=== PATIENT | female | born 1985 | race Caucasian/White ===

== ENCOUNTER 2020-02-19 19:28 | Observation (INO) | payer OTHER ==
[~2020-02-19] VITALS: Ht 157.5 cm; Wt 81.6 kg
[2020-02-19 19:49] VITALS: Ht 157.5 cm; Wt 81.6 kg
[2020-02-19 20:48] LABS: BASOPHIL % 0.7 % (0-2); PLATELET COUNT 375 x10^3mcL (130-400); RED CELL DISTRIBUTION WIDTH 13.7 % (11.5-14.5)
[2020-02-19 20:52] LABS: CALCIUM 8.7 mg/dL (8.5-10.1); CARBON DIOXIDE 23.2 mmol/L (21-32); CHLORIDE SERUM 105 mmol/L (98-107); CREATININE SERUM 0.7 mg/dL (0.6-1.0); GFR1 > 60 mL/min; GLUCOSE SERUM 96 mg/dL (74-106); POTASSIUM SERUM 3.8 mmol/L (3.5-5.1); SODIUM SERUM 140 mmol/L (136-145)
[2020-02-19 20:57] LABS: ALBUMIN 3.7 g/dL (3.4-5.0); ALKALINE PHOSPHATASE 52 U/L (46-116); ALT/SGPT 34 U/L (14-59); AST/SGOT 22 U/L (15-37); BILIRUBIN TOTAL 0.3 mg/dL (0.20-1.00)
[2020-02-19 21:10] LABS: microscopic required? YES; urine erythrocyte 3+ (NEGATIVE)
[2020-02-20] MEDS ORDERED: PRILOSEC OTC20 M1 PO (01:21)
[2020-02-20] MEDS ORDERED: VENTOLIN H0.09 MG/A1 IH (01:22)
--- NOTE | 2020-02-20 01:31 | NUR ---
REPORT CALLED TO FLOOR - GIVEN TO MELLY MAR.
--- NOTE | 2020-02-20 01:40 | NUR ---
PATIENT CAME UP FROM THE ED ACCOMPANIED BY THE NURSE ON WHEELCHAIR. PATIENT IN NO ACUTE DISTRESS. AWAKE, ALERT AND ORIENTED X4. PATIENT VERBALIZES SHE HAS 5/10 ABD PAIN. WILL PROCEED WITH PAIN MEDICATION INDICATED BY THE MD. PATIENT DENIES ANY ENGLAND OR DIZZINESS. ABLE TO MAKE NEEDS KNOWN. EVEN AND UNLABORED BREATHING NOTED ON ROOM AIR. LUNG SOUNDS CTA. SKIN INTACT. LAC IV WNL. FLUSHIGN WELL AND GOOD BLOOD RETURN. PULSES+, NO EDEMA NOTED. ABD SOFT/ROUND, NO DISTENTION. PATIENT HAS SOME TENDERNESS FROM ABD PAIN. BOWEL SOUNDS ACTIVE X4. BED IN LOWEST POSITION. CALL LIGHT WITHIN REACH. SIDE RAILS UP X2.
[2020-02-20 02:55] VITALS: BP 130/74
[2020-02-20 05:12] VITALS: BP 113/68
[2020-02-20 08:21] VITALS: BP 111/55
--- NOTE | 2020-02-20 08:36 | NUR ---
AAO TIMES 4. MED SURG PATIENT. LUNGS CTA. NO SOB. O2 SAT ON RA 97%. BS'S ACTIVE TIMES 4. PERIPHERAL PULSES PALPABLE. NO EDEMA. COOPERATIVE. IV SITE LAC PATENT, CDI.
--- NOTE | 2020-02-20 10:58 | NUR ---
MOTHER BRISA BURRELL ASKING ABOUT HER DTR. THE IS ON THE FACE SHEET. I ASKED ANDREW IF I COULD TALK TO HER MOM AND SHE SAID "YES".
[2020-02-20 12:13] VITALS: BP 111/69
[2020-02-20 16:29] VITALS: BP 116/68
--- NOTE | 2020-02-20 18:40 | NUR ---
AAO TIMES 4. MED SURG PATIENT. NO SOB. VS'S STABLE. COOPERATIVE. C/O OCCASIONAL ABD PAIN, MEDICATED WITH MORPHINE ORDERED. IV SITE CDI. BRP SELF.
--- NOTE | 2020-02-20 20:14 | NUR ---
recievedpt lying in bed awake alert and oriented.Moves all ext. well.lungs are clear bilt. abdomen soft w/ active dowel sound. No apparent distress note.
[2020-02-20 20:53] VITALS: BP 112/66
[2020-02-20 23:03] LABS: AMPHETAMINE QUAL UR NONE DETECTED (See below)
--- NOTE | 2020-02-21 02:53 | NUR ---
2146 AWAKE LYING IN BED W/ COMPLAINED OF PAIN. [id number] IVP GIVEN W/ RELIEVED.RESTING CONFORTABLE AFTER. 0255 SLEEPING SOUND IN BED. NO ACUTE DISTRESS NOTED.
[2020-02-21 05:17] VITALS: BP 99/54
[2020-02-21 05:37] LABS: BASOPHIL % 0.8 % (0-2); PLATELET COUNT 330 x10^3mcL (130-400); RED CELL DISTRIBUTION WIDTH 13.7 % (11.5-14.5)
[2020-02-21 05:53] LABS: CALCIUM 8.6 mg/dL (8.5-10.1); CARBON DIOXIDE 29.5 mmol/L (21-32); CHLORIDE SERUM 103 mmol/L (98-107); CREATININE SERUM 0.9 mg/dL (0.6-1.0); GFR1 > 60 mL/min; GLUCOSE SERUM 99 mg/dL (74-106); SODIUM SERUM 139 mmol/L (136-145)
--- NOTE | 2020-02-21 06:37 | NUR ---
PT ASLEEP MOST OF THE NIGHT. STILL COMPLAINED OF SEVERE ABDOMINAL PAIN.TOOK ONLY PAIN MED TWICE THE WHOLE NIGHT. NO ACUTE DISTRESS.
[2020-02-21 08:33] VITALS: BP 10/63; BP 101/63
[2020-02-21 12:39] VITALS: BP 110/67
[2020-02-21 16:42] VITALS: BP 113/67
--- NOTE | 2020-02-21 21:00 | NUR ---
RECEIVED PT FROM RN ALERT AND ORIENTED X4, BREATHING REGULAR AND UNLABORED ON ROOM AIR. PT REPORTS SEVERE BILATERAL LOWER QUADRANTS ABDOMINAL PAIN. PT DENIES ANY NAUSEA, REPORTS BOWEL MOVEMENTS ARE ALMOST CLEAR, IN PREPARATION FOR UPPER AND LOWER ENDOSCOPY PROCEDURE TOMORROW. PT VERBALIZED UNDERSTANDING OF NPO AFTER MIDNIGHT. LAC PIV PATENT, DRESSING CDI, NO SIGNS OF INFILTRATION. SAFETY PRECAUTIONS IN PLACE. WILL CONTINUE TO MONITOR.
[2020-02-21 21:05] VITALS: BP 104/63
--- NOTE | 2020-02-22 00:15 | NUR ---
PT CURRENTLY RESTING COMFORTABLY, IN NO ACUTE DISTRESS. PT PT DEMONSTRATED CALL LIGHT USE AND IS ABLE TO MAKE NEEDS KNOWN. BREATHING IS REGULAR AND UNLABORED ON ROOM AIR. PIV IS INTACT, NO SIGNS OF INFILTRATION. PT IS NPO AFTER MIDNIGHT FOR PROCEDURE TOMORROW. PT REPORTED IMPROVEMENT IN ABDOMINAL PAIN WITH ADMINSTRATION OF ORDERED PAIN MEDICATION. WILL CONTINUE TO MONITOR.
[2020-02-22 06:00] VITALS: BP 105/62
--- NOTE | 2020-02-22 06:24 | NUR ---
PT REMAINED ALERT AND ORIENTED X4. BREATHING REGULAR AND UNLABORED ON ROOM AIR. PT COMPLETED ORDERED BOWEL PREP FOR UPPER ENDOSCOPY AND COLONOSCOPY SCHEDULED FOR THIS MORNING, 02/22/20. PT WAS MEDICATED FOR SEVERE ABDOMINAL PAIN PER MAR, WITH IMPROVEMENT IN PAIN. PIV TO LAC PATENT, WITH DRESSING CDI AND NO SIGNS OF INFILTRATION. PT DEMONSTRATED CALL LIGHT USE, VSS, WILL ENDORSE CARE TO DAY SHIFT RN.
[2020-02-22 06:35] LABS: BASOPHIL % 0.8 % (0-2); PLATELET COUNT 367 x10^3mcL (130-400); RED CELL DISTRIBUTION WIDTH 13.6 % (11.5-14.5)
[2020-02-22 06:51] LABS: CALCIUM 8.7 mg/dL (8.5-10.1); CARBON DIOXIDE 23.2 mmol/L (21-32); CHLORIDE SERUM 102 mmol/L (98-107); CREATININE SERUM 0.6 mg/dL (0.6-1.0); GFR1 > 60 mL/min; GLUCOSE SERUM 88 mg/dL (74-106); POTASSIUM SERUM 3.7 mmol/L (3.5-5.1); SODIUM SERUM 139 mmol/L (136-145)
--- NOTE | 2020-02-22 07:30 | NUR ---
RECEIVED REPORT FROM NIGHTSHIFT RN. PATIENT RESTING COMFORTABLY IN BED. RESPIRATIONS APPEAR REGULAR AND UNLABORED. CALL LIGHT AND BEDSIDE TABLE WITHIN REACH. WILL CONTINUE TO MONITOR.
[2020-02-22 08:13] VITALS: BP 112/61
--- NOTE | 2020-02-22 09:15 | NUR ---
PATIENT WAS JUST TAKEN DOWNSTAIRS FOR EGD AND COLONOSCOPY. PAIN MEDICATION AND ZOFRAN GIVEN PER PATIENT REQUEST. PATIENT LEFT ALL BELONGINGS IN ROOM.
--- NOTE | 2020-02-22 11:55 | NUR ---
PATIENT RETURNED TO UNIT VIA GURNEY. PATIENT AMBULATED IN THE BATHROOM. VITALS TAKEN. WILL CONTINUE TO MONITOR.
[2020-02-22] MEDS ORDERED: ELA25 PO (12:14)
[2020-02-22] MEDS ORDERED: AMITIZA24 MC1 PO (12:15)
[2020-02-22 12:22] VITALS: BP 110/66
[2020-02-22 12:31] VITALS: BP 106/56
--- NOTE | 2020-02-22 14:46 | NUR ---
PATIENT REQUESTED A TIME OFF WORK NOTE. DR. ALAN PAGED AND INFORMED. PER DR. ALAN, PATIENT IS OK TO HAVE OFF WORK UNTIL Thursday02/27/20.
--- NOTE | 2020-02-22 15:13 | NUR ---
patient admitted for abdominal pain. s/p egd and colonoscopy. patient a&ox4, tolerating diet, pain managed with po noroco, voiding, bmx3 this shift. up ad shelby. discharge instructions printed and reviewed with patient. all medications discussed individually. teaching provided. gave patient the hard script for medications. provided patients the pictures from her procedures. iv access removed without complications. patients mom is picking her up. patient left unit via wheelchair with all belongings in no apparent distress.
== END 2020-02-22 15:35 | disposition home or self-care (01) ==
LOC: ED 19:28 → MU 02-20 00:20
PROVIDERS: Emergency Medicine; ADMIT Internal Medicine; ATTEND Internal Medicine
DX: R10.9 Unspecified abdominal pain (principal); F41.9 Anxiety disorder, unspecified; K59.00 Constipation, unspecified; E66.9 Obesity, unspecified
CPT/HCPCS: 43235; 45378; G0378; J1200; J1610; J1885; J2250; J2270; J2310; J2405; J3010; J3490; J7030; Q0092; Q9967

== ENCOUNTER 2020-05-16 17:39 | Observation (INO) | payer OTHER ==
[~2020-05-16] VITALS: Ht 157.5 cm; Wt 69.9 kg
[~2020-05-16 17:39] MED LIST: AMITIZA24 MC1 PO; ELA25 PO; PRILOSEC OTC20 M1 PO; VENTOLIN H0.09 MG/A1 IH
[2020-05-16 17:53] VITALS: Ht 157.5 cm; Wt 69.9 kg
--- NOTE | 2020-05-16 18:28 | NUR ---
PT BIB SELF C/O BLQ PAIN X2 DAYS. PT REPORTS NAUSEA AND BEING ON MENSTRUAL CYCLE. SHE REPORTS IRREGULAR MENSUS AND WILL SOMETIMES GETTING HER CYCLE TWICE A MONTH. PT IS A&OX4, LAYING IN POSTION OF COMFORT, RESP E/U. WILL CONTINUE TO MONITOR.
[2020-05-16 18:34] LABS: BASOPHIL % 0.6 % (0-2); PLATELET COUNT 278 x10^3mcL (130-400); RED CELL DISTRIBUTION WIDTH 13.8 % (11.5-14.5)
[2020-05-16 18:41] LABS: CALCIUM 8.4 mg/dL (8.5-10.1); CARBON DIOXIDE 27.3 mmol/L (21-32); CHLORIDE SERUM 108 mmol/L (98-107); CREATININE SERUM 0.8 mg/dL (0.6-1.0); GFR1 > 60 mL/min; GLUCOSE SERUM 105 mg/dL (74-106); POTASSIUM SERUM 3.9 mmol/L (3.5-5.1); SODIUM SERUM 140 mmol/L (136-145)
[2020-05-16 18:45] LABS: ALBUMIN 3.9 g/dL (3.4-5.0); ALKALINE PHOSPHATASE 65 U/L (46-116); ALT/SGPT 17 U/L (14-59); AMYLASE 55 U/L (25-115); AST/SGOT 9 U/L (15-37); BILIRUBIN TOTAL 0.4 mg/dL (0.20-1.00); LIPASE 129 IU/L (73-393); TOTAL PROTEIN, SERUM 6.9 g/dL (6.4-8.2)
--- NOTE | 2020-05-16 19:16 | NUR ---
REPORT GIVEN TO DEREJE MAR TO ASSUME CARE OF PATIENT.
--- NOTE | 2020-05-16 19:49 | NUR ---
PATIENT RE-EVALUATED BY MD, STILL HAS 10/10 PAIN. SALINE LOCK INSERTED. PATIENT MEDICATED WITH COMPAZINE AND MORPHINE. WAITING FOR ULTRASOUND.
--- NOTE | 2020-05-16 21:00 | NUR ---
PATIENT IS ADMITTED. REPORT WAS GIVEN TO ELODIA. PATIENT WILL BE TRANSPORTED TO ROOM 234B.
[2020-05-16] MEDS ORDERED: HYDROCODONE BIT1 T52 PO (21:12)
--- NOTE | 2020-05-16 21:26 | NUR ---
PATIENT IS SLEEPING, EXPRESS PAIN SCALE IS 7/10 WHEN AWAKEN. PATIENT TRANSPORTED TO THE ROOM.
[2020-05-16 21:36] LABS: microscopic required? YES; urine erythrocyte 2+ (NEGATIVE)
--- NOTE | 2020-05-16 21:48 | NUR ---
RECEIVED PATIENT FROM ER VIA GUERNEY, ALERT/ORIENTED X4. SITUATED IN BED. REPORT ABD PAIN 02/05. DENIED N/V. NO DISTRESS NOTED. IV TO LAC INTACT/PATENT, FLUSH FREELY NO INFILTRATION NOTED. CARE ENDORSE TO DUNCAN MAR.
[2020-05-16 22:10] VITALS: BP 106/63
--- NOTE | 2020-05-16 22:34 | NUR ---
MORPHINE 4 MG IVP GIVEN FOR ABDOMEN PAIN 02/05, AND ATIVAN 1 MG PO GIVEN FOR ANXIETY PER PATIENT REQUEST. WILL CONTINUE MONITOR.
[2020-05-17 05:33] VITALS: BP 100/57
[2020-05-17 07:20] LABS: BASOPHIL % 0.8 % (0-2); PLATELET COUNT 259 x10^3mcL (130-400); RED CELL DISTRIBUTION WIDTH 13.5 % (11.5-14.5)
[2020-05-17 07:30] VITALS: BP 108/65
[2020-05-17 07:44] LABS: ALBUMIN 3.5 g/dL (3.4-5.0); ALKALINE PHOSPHATASE 52 U/L (46-116); ALT/SGPT 18 U/L (14-59); AST/SGOT 11 U/L (15-37); BILIRUBIN TOTAL 0.49 mg/dL (0.20-1.00); CALCIUM 8.3 mg/dL (8.5-10.1); CARBON DIOXIDE 25.7 mmol/L (21-32); CHLORIDE SERUM 107 mmol/L (98-107); CREATININE SERUM 0.7 mg/dL (0.6-1.0); GFR1 > 60 mL/min; GLUCOSE SERUM 86 mg/dL (74-106); POTASSIUM SERUM 3.3 mmol/L (3.5-5.1); SODIUM SERUM 141 mmol/L (136-145); TOTAL PROTEIN, SERUM 6.5 g/dL (6.4-8.2)
--- NOTE | 2020-05-17 09:59 | NUR ---
DAY SHIFT Patient received awake and alert, able to makje needs known. Djib[place]ian is primary language. Med surg patient. Patient came in complaining of loss of appetite, and severe abdominal pain. Stated she was on day 4 of her mesus and that normally her mesus lasts about 10-14 days. Pulses present in all extremities. No edema noted. On room air, tolerating well. Lung sounds clear. Patient is continent of GI/. Last BM was yesterday per patient report. Patient is able to ambulate to the bathroom. Complained of pain this morning - administered morphine IV x1 - tolerated well. No pain at this time. Received with IV in left AC running NS @ 80cc/hr. Patient states her doctor told her it was edometriosis and that she would probably have a procedure. Patient is unable to recall who she spoke with and what procedure was discussed with her. Potassium was 3.3 this morning - administered PRN potassium x1. Will continue to monitor.
[2020-05-17 12:45] VITALS: BP 107/63
[2020-05-17 14:16] VITALS: BP 122/68
[2020-05-17 21:28] VITALS: BP 112/72
[2020-05-18 06:09] VITALS: BP 92/55
--- NOTE | 2020-05-18 06:23 | NUR ---
Pt currently in bed alert and oriented times 4. Pt with no changes in condition this shift. Pt slept well throughtout the night. Pt medicated with toradol as ordered twice this shift. Pt report good relief of pain with toradol. Safety measures in place-Bed in low posistion and call light within easy reach.
[2020-05-18 07:16] LABS: BASOPHIL % 0.7 % (0-2); PLATELET COUNT 268 x10^3mcL (130-400); RED CELL DISTRIBUTION WIDTH 13.5 % (11.5-14.5)
[2020-05-18 07:44] LABS: ALBUMIN 3.4 g/dL (3.4-5.0); ALKALINE PHOSPHATASE 52 U/L (46-116); ALT/SGPT 17 U/L (14-59); AST/SGOT 11 U/L (15-37); BILIRUBIN TOTAL 0.46 mg/dL (0.20-1.00); CALCIUM 8.5 mg/dL (8.5-10.1); CARBON DIOXIDE 27.7 mmol/L (21-32); CHLORIDE SERUM 104 mmol/L (98-107); CREATININE SERUM 0.8 mg/dL (0.6-1.0); GFR1 > 60 mL/min; GLUCOSE SERUM 87 mg/dL (74-106); SODIUM SERUM 137 mmol/L (136-145); TOTAL PROTEIN, SERUM 6.4 g/dL (6.4-8.2)
[2020-05-18 08:16] VITALS: BP 107/65
--- NOTE | 2020-05-18 10:44 | NUR ---
DAY SHIFT Patient received awake and alert, able to make needs known. Received with a left AC 22 guage IV. Complains of pain but verbalizes she would like to continue to scheduled Toradol 30mg IVP. Per patient she stated saw Dr Vann last night and he stated she likely had endometreosis but that per MD he did not accept her insurance. Per patient Dr Vann said to follow up with an outpatient [employer]. Patient is able to ambulate and tolerating diet well. Stated she felt nauseous - administered zofran IV x1. Will continue to monitor closely.
[2020-05-18 11:05] VITALS: BP 107/65
[2020-05-18 12:18] VITALS: BP 136/89
== END 2020-05-18 14:04 | disposition home or self-care (01) ==
LOC: ED 17:39 → MU 20:22
PROVIDERS: Emergency Medicine; ADMIT Internal Medicine; ATTEND Internal Medicine
DX: R10.2 Pelvic and perineal pain (principal); J45.909 Unspecified asthma, uncomplicated; M79.7 Fibromyalgia; G89.29 Other chronic pain; R63.5 Abnormal weight gain; K59.00 Constipation, unspecified; F11.90 Opioid use, unspecified, uncomplicated; M54.9 Dorsalgia, unspecified; N94.6 Dysmenorrhea, unspecified; N92.0 Excessive and frequent menstruation with regular cycle; Z90.49 Acquired absence of other specified parts of digestive tract; Z20.828 Contact with and (suspected) exposure to other viral communicable diseases
CPT/HCPCS: 87491; 87591; C9113; G0378; J0780; J1650; J1885; J2270; J2405; J3010; J7030; Q0162